=== PATIENT | male | born 1960 | race Caucasian/White ===

== ENCOUNTER 2024-07-28 14:39 | Emergency (ER) | payer BC, SELFPAY ==
[2024-07-28 14:42] VITALS: BP 160/101
[2024-07-28 14:44] VITALS: BMI 38.8
[2024-07-28 16:04] VITALS: BP 138/68
--- NOTE | 2024-07-28 16:07 | ED.GENMED ---
History of Present Illness
General
Chief Complaint: Breathing Problem
Source: patient
Time Seen by Provider: 07/28/24 15:54
History of Present Illness
History of Present Illness:
63yoM with a history of obesity and SAL not compliant with CPAP presenting with his for evaluation of shortness of breath. Patient started with a cough about 2 weeks ago. He was seen at [facility] on 07/17/24 and he was started on doxycycline
and prednisone for possible pneumonia. His symptoms improved slightly after starting the medications but his symptoms seem to plateau. Patient woke up this morning with worsening dyspnea prompting him to go back to urgent care. Patient received a
nebulizer treatment at urgent care and is feeling improved currently. His oxygen levels were borderline at urgent care, 91% at the lowest. Patient was told that they were unable to bring his oxygen level up so he was sent to the ED for evaluation.
His cough is productive of yellowish sputum. His also had pneumonia last month. No recent travel. He denies any fevers, chills, leg swelling, chest pain, hemoptysis. He is a former smoker.
Past History
Past History
ED Past Medical History: None
ED Past Surgical History: Orthopedic (Right Rotator cuff surgery)
Social History
Tobacco: Smoker
Alcohol: None
Drug: None
Personal:
Living: with family
Phy Exam
General Physical Exam
General Presentation: well appearing and no apparent distress
General age: appears stated age
General Skin: warm
General Habitus: normal
General Mental: alert
ENT Exam
ENT Exam: normocephalic
Cardiovascular Exam
Cardiovascular Exam: regular rate/rhythm, no edema and no murmur
Pulmonary Exam
Pulmonary Exam: lungs clear, no respiratory distress, no crackles and no wheezing
[place] Coma Scale
Eye Opening: Spontaneous
Verbal Response: Oriented
Motor Response: Obeys Commands
GCS Total Score: 15
Skin Exam
Skin Exam: normal color and warm/dry
Psychiatric Exam
Psychiatric Exam: normal mood/affect
Scores
Heart Failure Risk
Heart Failure Risk Score: Not Applicable
Course
Orders/Labs/Results
Orders:
Orders
07/28/24 16:06
Cardiac Monitoring- Treatment ONCE
07/28/24 16:07
Electrocardiogram (*1) Urgent
Reason for Study: Shortness of Breath
EKG- Treatment ONCE
07/28/24 16:12
D-Dimer Urgent
07/28/24 16:13
Basic Metabolic Panel Urgent
COVID-19 Antigen Urgent
Source: Nasal Swab
Complete Blood Count/With Diff Urgent
Troponin I Urgent
Influenza A+B Rapid Molecular Urgent
WILIAN Source: Nasal Swab
Specimen Description:
07/28/24 16:55
CT Chest Pe Study Urgent
Comment:
Reason For Exam: SOB, elevated D-dimer
Potassium Urgent
Abnormal Lab Results
07/28/24 07/28/24
16:12 16:13
RBC 4.38 L 10^6/uL
(4.70-6.10)
Hct 37.0 L %
(39.0-52.0)
Abs Immat Gran (auto) 0.1 H 10^3/uL
(0-0.05)
Absolute Monos (auto) 0.7 H 10^3/uL
(0.1-0.6)
Immature Gran % 0.8 H %
(0-0.5)
Lymphocytes % 18.6 L %
(20.5-51.1)
D-Dimer 0.52 H ug/mlFEU
(0.00-0.50)
Glucose 127 H mg/dl
(70-99)
07/28/24 16:13
07/28/24 16:55
Vital Signs
Initial and Last Documented VS:
Initial Vital Signs
Temp Resp
98.2 F 20
07/28/24 14:40 07/28/24 14:40
Last Documented Vital Signs
Temp Pulse Resp BP Pulse Ox
98.2 F 95 20 158/98 95
07/28/24 14:40 07/28/24 14:42 07/28/24 14:40 07/28/24 19:00 07/28/24 14:42
MDM/Problems Addressed
Differential Diagnosis Includes:
63yoM here with SOB. Ongoing cough x 2 weeks. Recently treated for pneumonia as an outpatient. Woke up today with dyspnea. Sent here by urgent care for borderline oxygen saturations. The lowest reported saturation was 91%. Patient feeling improved
after receiving a neb treatment at urgent care. Oxygen saturation 95% in triage. Remainder of vitals stable. Lungs CTA and respirations nonlabored. Differential diagnosis includes but is not limited to: Bronchitis, pneumonia, pulmonary edema, PE,
ACS less likely
Initial ED plan: Check cardiac labs, D-dimer, COVID/flu swab, and EKG.
*EKG
Interpreted by ED Provider?: Yes
EKG Intrepretation Date: 07/28/24
Heart Rate: 82
Rate: normal
Rhythm: sinus
[place]: normal axis
Interval: normal interval
QRS Pattern: normal QRS
Ischemia: no ischemia
*Critical Care Note
Total Time (30-74mins, 75-104mins- exclusive of procedures): Not Applicable
Update Note
Update Note:
EKG shows normal sinus rhythm without ischemic changes and troponin normal. White count normal. COVID/flu negative. D-dimer elevated and CTA chest subsequently ordered. CT is negative for pulmonary embolism. Imaging due to artifact but there is
no convincing evidence of pneumonia present. Patient feeling well reassessment. No episodes of hypoxia during ED stay. Patient does report postnasal drip which may be causing his nighttime symptoms. He was advised to start Flonase nasal spray,
Zyrtec, and use a humidifier at nighttime. Prescription provided for albuterol inhaler. He was advised to follow-up closely with his PCP. ED return precautions discussed. He expressed understanding and is agreeable to plan. Patient discharged
in stable condition.
ED Attending Note
-
Portions of this chart may have been created with voice recognition software.� Occasional wrong word or��sound alike� substitutions may have occurred due to the inherent limitations of voice recognition software.
Discharge Plan
Departure
Patient Disposition: Home (Routine Discharge)
Date of Disposition: 07/28/24
Time of Disposition: 19:00
Patient with high blood pressure during this ER visit?: No
Discharge Problem:
Shortness of breath, Postnasal drip
Instructions: Shortness of Breath (Dyspnea) (DC)
Prescriptions:
New
albuterol sulfate [Ventolin HFA] 90 mcg/actuation HFA aerosol inhaler
1 inh inhalation Q6H PRN (Reason: shortness of breath or wheezing) Qty: 1 0RF
No Action
tamsulosin [Flomax] 0.4 mg capsule
0.4 mg PO DAILY Qty: 15 0RF
oxycodone-acetaminophen [Percocet] 5-325 mg Tablet
1 tab PO Q6HPRN PRN (Reason: pain) Qty: 8 0RF
Referrals:
Americo Gutierrez MD [Family Provider] -
Activity Restrictions/Additional Instructions:
Take Xyrtec daily and use Flonase nasal spray daily. Use a cool mist humidifier in your bedroom at nighttime. Use inhaler as needed for wheezing/tightness.
Please follow-up with your family doctor in 4-5 days. Return to the ER with any new or worsening symptoms.
Interventions
Interventions:
*Risk Screen - Suicide Last Done: 07/28/24 16:00
*General Assessment Last Done: 07/28/24 16:00
*Neglect/Abuse Screening Last Done: 07/28/24 16:00
ED- Fall Risk Assessment Last Done: 07/28/24 16:00
*ED COVID-19 Vaccine History Last Done: 07/28/24 16:00
*Nursing Disposition Last Done: 07/28/24 19:13
ED- Cardiac Assessment Last Done: 07/28/24 16:00
ED- Pulmonary Assessment Last Done: 07/28/24 16:00
Discharge Date and Time
Discharge Date/Time: 07/28/24 19:13
Print Language: LITHUANIAN
[2024-07-28 16:33] LABS: % Basophils 0.4 % (0-2); % Eosinophils 1.2 % (0-6); % Immature Granulocytes 0.8 % (0-0.5); % Lymphocytes 18.6 % (20.5-51.1); Absolute Eosinophils 0.1 10^3/uL (0-0.7); Absolute Immature Granulocytes 0.1 10^3/uL (0-0.05); Absolute Lymphocytes 1.4 10^3/uL (1.2-3.4); Absolute Monocytes 0.7 10^3/uL (0.1-0.6); Absolute Neutrophils 5.4 10^3/uL (1.4-6.5); Hemoglobin 13.2 g/dL (13.0-18.0); Mean Corp Hgb Conc. 35.7 g/dL (33.0-37.0); Mean Corpuscular Hgb 30.1 pg (27.0-31.0); Mean Corpuscular Volume 84.5 fL (80.0-94.0); Mean Platelet Volume 10.4 fL (7.4-10.4); Nucleated Red Blood Cells % 0 % (-); Platelet Count 167 10^3/uL (130-400); Red Blood Cell Count 4.38 10^6/uL (4.70-6.10); Red Cell Dist. Width 13.3 % (11.5-14.5); White Blood Cell Count 7.6 10^3/uL (4.8-10.8)
[2024-07-28 16:45] LABS: D-Dimer 0.52 ug/mlFEU (0.00-0.50)
[2024-07-28 16:49] LABS: Blood Urea Nitrogen 20 mg/dl (9-20); Calcium 8.9 mg/dl (8.4-10.2); Carbon Dioxide 23 mmol/L (22-30); Chloride 105 mmol/L (98-107); Estimated Creatinine Clearance 120 ml/min; Glucose 127 mg/dl (70-99); Sodium 139 mmol/L (135-145); eGFR > 60.00
[2024-07-28 16:58] LABS: Troponin I < 0.012 ng/ml
[2024-07-28 17:00] VITALS: BP 121/77
[2024-07-28 17:02] LABS: COVID-19 Antigen Negative (Negative)
[2024-07-28 17:13] LABS: Potassium 3.8 mmol/L (3.5-5.1)
[2024-07-28 18:00] VITALS: BP 120/72
[2024-07-28 19:00] VITALS: BP 158/98
== END 2024-07-28 19:13 | disposition home or self-care (01) ==
LOC: EMR 14:39
PROVIDERS: Physician Assistant; EMERGENCY PHYSICIAN Student in an Organized Health Care Education/Training Program; FAMILY PHYSICIAN Family Medicine
DX: R06.02 Shortness of breath (principal); R09.82 Postnasal drip; Z11.52 Encounter for screening for COVID-19
CPT/HCPCS: 99285; 71275; 80048; 84132; 84484; 85025; 85379; 87502; 87811; 93005; Q9967

== ENCOUNTER → 2024-08-30 07:53 | Outpatient (REF) | payer BC, SELFPAY | LOC: HWRAD 07:53 | PROVIDERS: ATTENDING PHYSICIAN Physician Assistant Medical | DX: R91.8 Other nonspecific abnormal finding of lung field (principal) | CPT/HCPCS: 71260; Q9967 ==

== ENCOUNTER → 2024-11-30 07:57 | Outpatient (REF) | payer BC, SELFPAY | LOC: HWRAD 07:57 | PROVIDERS: ATTENDING PHYSICIAN Physician Assistant Medical | DX: R91.8 Other nonspecific abnormal finding of lung field (principal) | CPT/HCPCS: 71250 ==